=== PATIENT | male | born 1965 | race Caucasian/White ===

== ENCOUNTER 2017-09-12 21:13 | Emergency (ER) | payer OTHER ==
[~2017-09-12] VITALS: Ht 177.8 cm; Wt 103.4 kg
[2017-09-12] MEDS ORDERED: OMEPRAZOLE40 M1 PO (21:44)
[2017-09-12] MEDS ORDERED: METFORMIN HCL500 MG PO (21:44)
[2017-09-12] MEDS ORDERED: DULERA 100 MCG/13 GM IH (21:44)
[2017-09-12] MEDS ORDERED: PRAVASTATIN SOD20 MG PO (21:45)
[2017-09-12] MEDS ORDERED: MONTELUKAST SOD10 MG PO (21:45)
[2017-09-12 22:00] LABS: HEMATOCRIT 36.1 % (38.0-50.0); HEMOGLOBIN 12.5 G/DL (12.5-16.6); MCHC 34.6 G/DL (30.0-36.0); MCV 83.8 FL (86-99); PLATELET COUNT 294 K/uL (156-360); RBC DIS.WIDTH-SD 39.7 % (39-53); RED BLOOD COUNT 4.31 M/uL (4.00-5.50); WHITE BLOOD COUNT 9.8 K/uL (4.1-10.2)
[2017-09-12 22:12] LABS: CHLORIDE 110 mEq/L (99-109); POTASSIUM 3.5 mEq/L (3.7-5.4); SODIUM 139 mEq/L (136-147)
[2017-09-12 22:13] LABS: GLUCOSE 105 mg/dL (70-99)
[2017-09-12 22:17] LABS: CREATININE 1.4 mg/dL (0.6-1.3); GFR ESTIMATE (CALCULATED) 57 mL/min/ (58.99-99999)
[2017-09-12 22:18] LABS: UREA NITROGEN (BUN) 14 mg/dL (9-23)
[2017-09-12 22:26] LABS: TROP-I INTERPRETATION NEGATIVE; TROPONIN-I < 0.01 ng/mL (0.0-0.30)
[2017-09-13] MEDS ORDERED: ROBITUSSIN AC,T10 ML PO (00:35)
[2017-09-13] MEDS ORDERED: PREDNISONE20 MG PO (00:35)
[2017-09-13 00:51] VITALS: BP 126/63
== END 2017-09-13 01:07 | disposition home or self-care (01) ==
LOC: EME 21:13
PROVIDERS: Emergency Medicine
DX: J20.9 Acute bronchitis, unspecified (principal); J45.909 Unspecified asthma, uncomplicated; E78.5 Hyperlipidemia, unspecified; Z88.8 Allergy status to other drugs, medicaments and biological substances; Z79.84 Long term (current) use of oral hypoglycemic drugs
CPT/HCPCS: 71046; 80048; 84484; 85027; 93005; 94640; 99281; 99285; J7512